=== PATIENT | female | born 1990 | race African-American/Black ===

== ENCOUNTER 2018-07-18 17:08 | Emergency (ER) | payer SELFPAY ==
[~2018-07-18] VITALS: Ht 144.8 cm; Wt 50.8 kg
[~2018-07-18 17:08] MED LIST: OXYC1TAB15 PO
[2018-07-18 17:26] VITALS: BP 129/72
[2018-07-18 17:52] LABS: BILIRUBIN,URINE NEGATIVE (NEG); CLARITY,URINE CLOUDY; COLOR,URINE YELLOW; NITRITE,URINE NEGATIVE (NEG); PH,URINE 7.5; PROTEIN,URINE NEGATIVE (NEG-TRACE)
--- NOTE | 2018-07-18 17:57 | PHYS DOC ---
Past Medical History Past Medical History: No Pertinent History Past Surgical History: Additional Past Surgical Histo: neck surgery Smoking: Cigarettes, 1 Pack Per Day Alcohol Use: None Drug Use: None Adult General Chief Complaint Chief Complaint: MENSTRUAL PAIN/CRAMPS HPI HPI Patient is a 28 year old AA female who presents to the emergency room with complaints of lower abdominal cramping, irregular vaginal discharge, and concerns of possible for the last week. Patient states her last menstrual cycle was on June 16, 2018 and that her menstrual cycles are usually only 22 days long. She has not taken a test as of yet. She denies any increased urinary frequency, dysuria, foul-smelling urine, or back pain. She denies any nausea, vomiting, or diarrhea. Patient states that she is 3, para 1, A2. She has a history of a tubal in the past. Review of Systems Review of Systems Constitutional: Denies fever or chills [] Respiratory: Denies cough or shortness of breath [] Cardiovascular: No additional information not addressed in HPI [] GI: See HPI : Denies dysuria or hematuria; See HPI [] Musculoskeletal: Denies back pain Integument: Denies rash or skin lesions [] Neurologic: Denies headache, focal weakness or sensory changes [] Complete systems were reviewed and found to be within normal limits, except as documented in this note. Allergies Allergies Allergies Coded Allergies Type Severity Reaction Last Updated Verified No Known Drug Allergies 10/17/13 No Physical Exam Physical Exam Constitutional: Well developed, well nourished, no acute distress, non-toxic appearance. [] HENT: Normocephalic, atraumatic, bilateral external ears normal, oropharynx moist, no oral exudates, nose normal. [] Eyes: conjunctiva normal, no discharge. [] Neck: Normal range of motion, no tenderness, supple, no stridor. [] Pelvic Exam: Machine Repair Person present Sharron REYES Abdomen: Nontender External Genitalia: Normal Skin Speculum: Normal vaginal mucosa, normal cervical discharge Bimanual: No adnexal masses or tenderness, No CMT Skin: Warm, dry, no erythema, no rash. [] Neurologic: Alert and oriented X 3, normal motor function, normal sensory function, no focal deficits noted. [] Psychologic: Affect normal, judgement normal, mood normal. [] Current Patient Data Vital Signs Vital Signs Date Time Temp Pulse Resp B/P (MAP) Pulse Ox O2 Delivery O2 Flow Rate FiO2 07/18/18 17:26 98.1 84 16 129/72 (91) 99 Room Air 98.1 Lab Values Laboratory Tests Test 07/18/18 17:15 07/18/18 17:23 Urine Collection Type Unknown Urine Color Yellow Urine Clarity Cloudy Urine pH 7.5 Urine Specific [place] 1.025 Urine Protein Negative mg/dL (NEG-TRACE) Urine Glucose (UA) Negative mg/dL (NEG) Urine Ketones (Stick) Negative mg/dL (NEG) Urine Blood Negative (NEG) Urine Nitrite Negative (NEG) Urine Bilirubin Negative (NEG) Urine Urobilinogen Dipstick 1.0 mg/dL (0.2 mg/dL) Urine Leukocyte Esterase Negative (NEG) Urine RBC 0 /HPF (0-2) Urine WBC 0 /HPF (0-4) Urine Squamous Epithelial Cells Few /LPF Urine Amorphous Sediment Present /HPF Urine Bacteria Few /HPF (0-FEW) POC Urine HCG, Qualitative Hcg positive (Negative) Microbiology 07/18/18 Wet Prep - Final, Complete EKG EKG [] Radiology/Procedures Radiology/Procedures [] Course & Med Decision Making Course & Med Decision Making Pertinent Labs and Imaging studies reviewed. (See chart for details) Pt left prior to US results. She was offered prophylactic treatment for suspected STI with zithromax and rocephin but refused medications. She was notified of positive test and negative wet mount before she left AMA. [] Dragon Disclaimer Dragon Disclaimer This electronic medical record was generated, in whole or in part, using a voice recognition dictation system. Departure Departure Impression: Primary Impression: Left against medical advice Disposition: 07 AGAINST MEDICAL ADVICE Condition: STABLE Referrals: NO PCP (PCP) JUSTUS BONILLA [employer] Jul 18, 2018 17:57
[2018-07-18 18:05] LABS: SQUAMOUS EPITHELIAL CELL,UR FEW /LPF
[2018-07-18 18:09] LABS: AMORPHOUS SEDIMENT,UR PRESENT /HPF; BACTERIA,URINE FEW /HPF (0-FEW); RBC,URINE 0 /HPF (0-2); WBC,URINE 0 /HPF (0-4)
--- NOTE | 2018-07-18 20:37 | RAD ---
Examination: OB <14 WKS W/TV History: low abd pain, prev ectopic
lmp 06/13/18

small sac seen in ut measuring 5w 0d
questionable ys

2 lo lesions
#1 complex 2.0 x 2.1 x 1.6 cm
#2 hypo 1.6 x 1.4 x 1.2 cm

+ blood flow bilat ovaries Comparison/Correlation: None Findings: Transabdominal and transvaginal OB ultrasound exam was performed. Myometrium is normal. Endometrial thickness of 1.2 cm noted. There is question of a small intrauterine gestational sac corresponding to 5 weeks 0 day gestation. Possibility of a yolk sac is raised. There are 2 left ovarian structure is present. One is heterogeneously hyperechoic measuring 2 cm x 2.17 x 1.6 cm. Flow is present on spectral Doppler imaging of the left ovary. Additional lesion is hypoechoic measuring 1.6 cm x 1.14 x 1.2 cm. Normal flow involving the left ovary is noted on color Doppler imaging. No pelvic free fluid. Impression: Intrauterine fluid collection which may represent a gestational sac. No pole or definite yolk sac however. This may represent early intrauterine gestation. There are left adnexal complex hyperechoic and hypoechoic structures. These are of indeterminate etiology. Consider follow-up serial beta hCG and possibly follow-up ultrasound exam if ectopic gestation is a persistent concern. Electronically signed by: Lyle Mays MD (07/18/2018 8:33 PM) [facility]
[2018-07-20 13:22] LABS: GC PROBE Negative (Negative)
== END 2018-07-18 20:35 | disposition left against medical advice (07) ==
LOC: ER 17:08
DX: R10.30 Lower abdominal pain, unspecified (principal); N89.8 Other specified noninflammatory disorders of vagina; F17.210 Nicotine dependence, cigarettes, uncomplicated
CPT/HCPCS: 76801; 76817; 81001; 81025; 87491; 87591; 99284; Q0111

== ENCOUNTER 2021-06-01 10:44 | Emergency (ER) | payer BC, MEDICAID ==
[~2021-06-01] VITALS: Ht 144.8 cm; Wt 50.0 kg
[~2021-06-01 10:44] MED LIST changes: +NAPR-514 PO
--- NOTE | 2021-06-01 11:06 | PHYS DOC ---
Past Medical History Past Medical History: No Pertinent History Past Surgical History: , Other Additional Past Surgical Histo: neck surgery, fallopian tube removal Smoking Status: Never Smoker Alcohol Use: None Drug Use: None General Adult EDM: Chief Complaint: TEST HPI: HPI: Patient is a 31 year old female here who presents with concern for being . Her last menstrual period was sometime in early to mid March. She did not have an. In April. She reports that she has some lower abdominal cramping and she has been dizzy recently. She denies chest pain, dyspnea, palpitations, headache, nausea or vomiting, focal or severe abdominal pain, denies bowel habit changes. Denies urinary symptoms. Denies vaginal bleeding or discharge. This would be her fourth . She is two of them children and she had a history of an ectopic. She did undergo a unilateral salpingectomy, but she is unsure which side. Her youngest child is 2 years old. She has been in denial somewhat, secondary to being anxious about having another . She denies any abdominal trauma or pelvic trauma. She reports that she was not feeling well and felt dizzy, so her work sent her here. She has not taken a home test. test is positive here. Review of Systems: Review of Systems: Constitutional: Denies fever or chills. [] HENT: Denies nasal congestion or sore throat. [] Respiratory: Denies cough or shortness of breath. [] Cardiovascular: Denies chest pain or edema. [] GI: Reports mild pelvic cramping, denies focal or severe abdominal pain. Denies nausea, vomiting or bowel habit changes. : Denies any urinary symptoms. Denies vaginal discharge or bleeding. Musculoskeletal: Denies back pain or joint pain. [] Integument: Denies rash. [] Neurologic: Denies headache, focal weakness or sensory changes. Ports mild dizziness. No syncope. Psychiatric: Mild anxiety related to potential status. [] Heart Score: C/O Chest Pain: No Risk Factors: Risk Factors: DM, Current or recent (<one month) smoker, HTN, HLP, family history of CAD, obesity. Risk Scores: Score 0 - 3: 2.5% MACE over next 6 weeks - Discharge Home Score 4 - 6: 20.3% MACE over next 6 weeks - Admit for Clinical Observation Score 7 - 10: 72.7% MACE over next 6 weeks - Early Invasive Strategies Allergies: Allergies: Allergies Coded Allergies Type Severity Reaction Last Updated Verified No Known Drug Allergies 10/17/13 No Physical Exam: PE: Constitutional: Well developed, well nourished, no acute distress, non-toxic appearance. [] HENT: Normocephalic, atraumatic Eyes: Sclera are clear and anicteric. Neck: Trachea midline, no tenderness. Cardiovascular:Heart rate regular rhythm, +2 radial and posterior tibial pulses bilaterally Lungs & Thorax: Bilateral breath sounds clear to auscultation [] Abdomen: Abdomen soft, nondistended, nontender to palpation, no palpable masses organomegaly, no CVA tenderness. Skin: Warm, dry, no erythema, no rash. [] Back: No tenderness, no CVA tenderness. [] Extremities: No tenderness, no cyanosis, no clubbing, ROM intact, no edema. [] Neurologic: Alert and oriented X 3, gait is steady, speech is clear and fluent. Psychologic: Slightly anxious, cooperative and pleasant. EKG: EKG: [] Radiology/Procedures: Radiology/Procedures: IMAGING REPORT Signed PATIENT: ORVILLE SILVA AACCOUNT: [id number] : 1990 LOCATION: ER AGE: 31 SEX: F EXAM STATUS: REG ER ORD. PHYSICIAN: YOON MESA DO REASON: test +, cramping PROCEDURE: OB <14 WKS W/TV EXAMINATION: US OB <14 WKS +TV, 06/01/2021 12:09 PM CLINICAL INDICATION: Positive test, cramping. TECHNIQUE: Grayscale, color and spectral Doppler ultrasound images of the pelvis via first trimester OB protocol. COMPARISON: None. FINDINGS: The uterus measures 8.0 x 6.0 x 4.8 cm. There is a gestational sac containing an embryo with crown-rump length of 0.4 cm. This is consistent with gestational age 6 weeks 1 day. A yolk sac is visualized. heart rate is 113 bpm. There is a fibroid in the posterior uterus measuring 2 x 1.8 x 1.6 cm. The right ovary measures 2.7 x 3.4 x 2.0 cm and contains a probable corpus luteum cyst. The left ovary is not visualized. No adnexal mass. Trace free fluid in the cul-de-sac. IMPRESSION: 1. Single living intrauterine with gestational age by ultrasound 6 weeks 1 day. 2. 2 cm fibroid in the posterior uterus. Electronically signed by: Melanie Ames MD (06/01/2021 1:23 PM) [id number] DICTATED and SIGNED BY: MELANIE AMES MD DATE: 06/01/21 [id number] 0 Course & Med Decision Making: Course & Med Decision Making I discussed the findings, differential diagnosis and plan of care with the patient. I performed my own bedside ultrasound, and there appears to be a likely intrauterine , though it is difficult to say for certain. I did order a formal OB ultrasound, which confirms intrauterine . I explained that she should stop smoking, she should take a vitamin, she should follow-up with her OB, I recommend she contact them this week to make an appointment to establish care. No current indication for further imaging, invasive exams or labs at this time. Strict return precautions are given. Dragon Disclaimer: [employer] Disclaimer: This electronic medical record was generated, in whole or in part, using a voice recognition dictation system. Departure Departure Impression: Primary Impression: Intrauterine Disposition: 01 HOME / SELF CARE / HOMELESS Condition: GOOD Referrals: BARNEY RIOS MD (PCP) Patient Instructions: ABCs of , Abdominal Pain During Additional Instructions: Return to the emergency department for severe abdominal pain, vaginal bleeding, difficulty urinating, fever 100.4 or higher, uncontrolled vomiting with dehydration or for any other concerns. You should start taking a vitamin. Make sure you stay well-hydrated. Your test is positive, and your ultrasound shows that you are just over 6 weeks . Please contact your OB to establish care and for follow-up. Scripts Vits W-Ca,Fe,Fa(<1MG) ( VITAMINS) 1 Each Tablet 1 TAB PO DAILY for 30 Days, #30 TAB 0 Refills Prov: YOON MESA DO 06/01/21 YOON MESA DO Jun 01, 2021 11:06
[2021-06-01 11:32] LABS: BILIRUBIN,URINE NEGATIVE (NEG); CLARITY,URINE CLEAR; COLOR,URINE YELLOW; NITRITE,URINE NEGATIVE (NEG); PROTEIN,URINE NEGATIVE (NEG-TRACE)
[2021-06-01 11:42] LABS: BACTERIA,URINE 0 /HPF (0-FEW); RBC,URINE 0 /HPF (0-2); WBC,URINE 0 /HPF (0-4)
[2021-06-01 12:18] LABS: BASO % 1 % (0-3); EOS # 0.3 x10^3/uL (0.0-0.7); EOS % 5 % (0-3); HEMATOCRIT 38.3 % (36.0-47.0); HEMOGLOBIN 12.9 g/dL (12.0-15.5); LYMPH # 1.6 x10^3/uL (1.0-4.8); LYMPH % 29 % (24-48); MEAN CORPUSCULAR HEMOGLOBIN 32 pg (25-35); MEAN CORPUSCULAR HGB CONC 34 g/dL (31-37); MEAN CORPUSCULAR VOLUME 94 fL (79-100); MONO # 0.4 x10^3/uL (0.0-1.1); MONO % 8 % (0-9); NEUT # 3.1 x10^3/uL (1.8-7.7); NEUT % 57 % (31-73); PLATELET COUNT 180 x10^3/uL (140-400); RED BLOOD COUNT 4.09 x10^6/uL (3.50-5.40); RED CELL DISTRIBUTION WIDTH 13.2 % (11.5-14.5); WHITE BLOOD COUNT 5.5 x10^3/uL (4.0-11.0)
[2021-06-01 12:25] LABS: CALCIUM 8.8 mg/dL (8.5-10.1); CREATININE 0.7 mg/dL (0.6-1.0); GFR 118.1; POTASSIUM 3.5 mmol/L (3.5-5.1)
--- NOTE | 2021-06-01 13:26 | RAD ---
EXAMINATION: US OB <14 WKS +TV, 06/01/2021 12:09 PM CLINICAL INDICATION: Positive test, cramping. TECHNIQUE: Grayscale, color and spectral Doppler ultrasound images of the pelvis via first trimester OB protocol. COMPARISON: None. FINDINGS: The uterus measures 8.0 x 6.0 x 4.8 cm. There is a gestational sac containing an embryo with crown-ru mp length of 0.4 cm. This is consistent with gestational age 6 weeks 1 day. A yolk sac is visualized. heart rate is 113 bpm. There is a fibroid in the posterior uterus measuring 2 x 1.8 x 1.6 cm. The right ovary measures 2.7 x 3.4 x 2.0 cm and contains a probable corpus luteum cyst. The left ovar y is not visualized. No adnexal mass. Trace free fluid in the cul-de-sac. IMPRESSION: 1. Single living intrauterine with gestational age by ultrasound 6 weeks 1 day. 2. 2 cm fibroid in the posterior uterus. Electronically signed by: Melanie Ames MD (06/01/2021 1:23 PM) [id number]
[2021-06-01] MEDS ORDERED: PREN1TAB58 PO (13:31)
[2021-06-01 13:44] VITALS: BP 128/77
== END 2021-06-01 13:30 | disposition home or self-care (01) ==
LOC: ER 10:44
DX: O26.891 Other specified pregnancy related conditions, first trimester (principal); R10.30 Lower abdominal pain, unspecified; R42 Dizziness and giddiness; Z3A.01 Less than 8 weeks gestation of pregnancy
CPT/HCPCS: 36415; 76801; 76817; 80048; 81001; 81025; 84702; 85025; 99284

== ENCOUNTER → 2021-06-18 | Outpatient (CLI) | payer BC ==
[2021-06-01 13:44] VITALS: BP 128/77
[~2021-06-18] MED LIST changes: +PREN1TAB58 PO
[2021-06-18 12:49] LABS: HEMATOCRIT 37.9 % (36.0-47.0); HEMOGLOBIN 12.8 g/dL (12.0-15.5); RED BLOOD COUNT 4.03 x10^6/uL (3.50-5.40); RED CELL DISTRIBUTION WIDTH 13.7 % (11.5-14.5); WHITE BLOOD COUNT 5.7 x10^3/uL (4.0-11.0)
[2021-06-22 06:16] LABS: RUBELLA IGG ANTIBODY 3.73 index (Immune >0.99)
== END ==
LOC: LAB 12:00
PROVIDERS: ATTEND Obstetrics & Gynecology
DX: O09.71 Supervision of high risk pregnancy due to social problems, first trimester (principal); Z3A.00 Weeks of gestation of pregnancy not specified
CPT/HCPCS: 36415; 85027; 85660; 86592; 86703; 86762; 86787; 86803; 86850; 86900; 86901; 87340